=== PATIENT | female | born 2005 | race Caucasian/White ===

== ENCOUNTER 2023-08-13 22:04 | Emergency (ER) | payer BC ==
[~2023-08-13] VITALS: Ht 165.1 cm; Wt 60.0 kg
[2023-08-13 22:11] VITALS: TEMP 98.5; O2SAT 98
[2023-08-13] MEDS: NALOXONE HCL 0.4MG/ML 1ML VIAL IM ONE (22:30)
[2023-08-13] MEDS ORDERED: NALO4SPR BOTHNSTRLS (23:08)
[2023-08-14] MEDS: ONDANSETRON 4MG ODT PO ONE (00:04)
[2023-08-14 01:48] VITALS: BP 127/84; PULSE 100; RESP 16
== END 2023-08-14 02:44 | disposition home or self-care (01) ==
LOC: ER 22:04
DX: T40.411A Poisoning by fentanyl or fentanyl analogs, accidental (unintentional), initial encounter (principal); F31.9 Bipolar disorder, unspecified; Y92.89 Other specified places as the place of occurrence of the external cause
CPT/HCPCS: 99283; 96372; J2310